=== PATIENT | female | born 1955 | race Caucasian/White ===

== ENCOUNTER 2024-05-11 23:41 | Observation (INO) | payer MEDICARE, SELFPAY ==
[2024-05-11 14:46] VITALS: BP 132/87
[2024-05-11 15:21] LABS: % Basophils 0.2 % (0-2); % Immature Granulocytes 0.2 % (0-0.5); % Lymphocytes 40.6 % (20.5-51.1); % Monocytes 6.1 % (1.7-9.3); % Neutrophils 50.9 % (42.2-75.2); Absolute Eosinophils 0.1 10^3/uL (0-0.7); Absolute Monocytes 0.3 10^3/uL (0.1-0.6); Absolute Neutrophils 2.5 10^3/uL (1.4-6.5); Hematocrit 40.7 % (37.0-47.0); Hemoglobin 13.9 g/dL (12.0-16.0); Mean Corp Hgb Conc. 34.2 g/dL (33.0-37.0); Mean Corpuscular Volume 93.8 fL (81.0-99.0); Mean Platelet Volume 11.6 fL (7.4-10.4); Nucleated Red Blood Cells % 0 %; Platelet Count 210 10^3/uL (130-400); Red Blood Cell Count 4.34 10^6/uL (4.20-5.40); Red Cell Dist. Width 11.9 % (11.5-14.5); White Blood Cell Count 4.9 10^3/uL (4.8-10.8)
[2024-05-11 15:36] LABS: ALT (SGPT) 21 U/L (0-35); AST (SGOT) 25 U/L (14-36); Albumin 4.6 g/dl (3.5-5.0); Alkaline Phosphatase 121 U/L (38-126); Blood Urea Nitrogen 19 mg/dl (7-17); Calcium 9.8 mg/dl (8.4-10.2); Carbon Dioxide 28 mmol/L (22-30); Chloride 102 mmol/L (98-107); Glucose 163 mg/dl (70-99); Potassium 4.2 mmol/L (3.5-5.1); Sodium 137 mmol/L (135-145); Total Bilirubin 0.6 mg/dl (0.2-1.3); Total Protein 7.1 g/dl (6.3-8.2); eGFR > 60.00
[2024-05-11 16:31] LABS: Urine Albumin Negative (Neg - Trace); Urine Bilirubin Negative (Negative); Urine Character Clear (Clear); Urine Color Yellow; Urine Glucose Negative (Negative); Urine Ketone Negative (Negative); Urine Leukocyte Negative (Negative); Urine Nitrite Negative (Negative); Urine Occult Blood Negative (Negative); Urine Specific Gravity 1.015 (<1.030); Urine Urobilinogen Negative (Neg - 1+)
[2024-05-11 18:20] VITALS: BMI 27.3
[2024-05-11 18:26] VITALS: BP 143/83
--- NOTE | 2024-05-11 18:26 | EDRN ---
Pt says she was shopping this afternoon and she was asked to get an address and she says she was unable to remember how to get the address from her phone around 1230 today. Pt drove home, used her GPS to get home, pt says she is new to the area.
Daughter at bedside says her sister spoke with pt and was told this and little bit later pt repeated the story and did not remember that she had just told her the same story. Sister called daughter at bedside who called 911 at [phone]. Pt denies
headache, visual/speech disturbance, cp, sob, abd pain, n/v/c/d, urinary symptoms, weakness, dizziness, numbness/tingling. Pt's only complaint is she feels nervous. No hx similar episode.
--- NOTE | 2024-05-11 18:30 | EDRN ---
Pt says she cannot remember if she had breakfast this morning but she can remember she ate cashews when she returned from shopping.
[2024-05-11 19:00] VITALS: BP 146/79
--- NOTE | 2024-05-11 19:33 | ED.GENMED ---
History of Present Illness
General
Chief Complaint: Change in Mental Status
Source: patient, spouse and family
Exam Limitations: none
Time Seen by Provider: 05/11/24 19:03
Nursing documentation reviewed up to this point in time: agreed with
History of Present Illness
History of Present Illness:
68-year-old female presenting to the emergency department with concerns of an episode where she had a lapse of memory while she was out at the mall. She had difficulty using her phone and finding directions. She was able to drive home but claims
that this was a bit of a bladder as well. The family claims that she seemed to have some asymmetry of her mouth but denies any additional obvious symptoms. At this point symptoms of fully resolved. No chest pain shortness of breath. No change in
medications. Does have a history of anxiety.
Review of Systems
Review of Systems
Allergies reviewed?: Yes
All Other Systems: ROS reviewed and negative except as documented in HPI and ROS
Phy Exam
Physical Exam
Physical Exam:
GENERAL: Alert , in no apparent distress
EYE: pupils equal and reactive
NECK: Supple, no significant adenopathy.
ENT: o/p clr, mmm.
CARDIAC: Regular rate and rhythm .
LUNGS: Clear breath sounds bilaterally, no acute respiratory distress, no wheezes/rales/rhonchi
ABDOMEN: Soft, without focal tenderness, no r/g, no cvat
NEUROLOGICAL: Alert and oriented, no focal neuro deficits
SKIN: Warm and dry, skin intact.
MUSCULOSKELETAL: No edema, well perfused.
PSYCH: Normal and appropriate interaction.
Course
Orders/Labs/Results
Orders:
Orders
05/11/24 14:54
CT Head W/o Iv Contrast Urgent
Comment:
Reason For Exam: change in MS
05/11/24 15:04
CBC/With Diff [Complete Blood Count/With Diff] Urgent
Comprehensive Metabolic Panel Urgent
05/11/24 16:10
Urinalysis Reflex To Culture Urgent
Date Specimen was Collected: 05/11/24
Time Specimen was Collected: 16:09
05/11/24 19:29
EKG [Electrocardiogram (*1)] Urgent
Reason for Study: TIA/Stroke
CT Head & Neck Angio W/wo IV Urgent
Comment:
Reason For Exam: memory loss event today/mouth asymetry
EKG- Treatment ONCE
Abnormal Lab Results
05/11/24
15:04
MCH 32.0 H pg
(27.0-31.0)
MPV 11.6 H fL
(7.4-10.4)
BUN 19 H mg/dl
(7-17)
Glucose 163 H mg/dl
(70-99)
05/11/24 15:04
05/11/24 15:04
Vital Signs
Initial and Last Documented VS:
Initial Vital Signs
Temp Pulse Resp BP Pulse Ox
98.2 F 79 16 132/87 100
05/11/24 14:46 05/11/24 14:46 05/11/24 14:46 05/11/24 14:46 05/11/24 14:46
Last Documented Vital Signs
Temp Pulse Resp BP Pulse Ox
99 F 73 16 127/76 98
05/11/24 18:26 05/11/24 22:13 05/11/24 22:13 05/11/24 22:13 05/11/24 22:13
MDM/Problems Addressed
MDM/Problems Addressed:
68-year-old female presenting to the emergency department today with concerns of an episode where she had a lapse of memory and potentially drooping of her mouth and smile according to the family on the left side. On arrival patient is currently
asymptomatic vital signs are normal labs unremarkable head CT without emergent findings. Case was discussed with neurology the recommended CT angiogram and potential dual antiplatelet treatment. Patient is already on atorvastatin. CT angiogram
without emergent findings. Patient claims that she still has some degree of confusion as well as family believes that her smile seems to be somewhat asymmetrical still. Considering this plan to bring in for MRI.
*Critical Care Note
Total Time (30-74mins, 75-104mins- exclusive of procedures): Not Applicable
ED Attending Note
-
Portions of this chart may have been created with voice recognition software.� Occasional wrong word or��sound alike� substitutions may have occurred due to the inherent limitations of voice recognition software.
Discharge Plan
Departure
Patient Disposition: Admit
Date of Disposition: 05/11/24
Time of Disposition: 22:49
Admit to: Telemetry
Admit to doctor: Chance
Presentation/result/management discussed w/ accepting MD/DO: Hospitalist
Patient with high blood pressure during this ER visit?: No
Condition: Good
Covid-19: Not Applicable
Discharge Problem:
Acute memory impairment
Prescriptions:
No Action
venlafaxine [Effexor XR] 75 mg Capsule,Extended Release 24hr
150 mg PO DAILY
atorvastatin 10 mg Tablet
10 mg PO QPM
citalopram 20 mg Tablet
20 mg PO DAILY
Patient Comments:
pt in process of weaning
lorazepam 0.5 mg Tablet
0.5 mg PO PRN PRN (Reason: anxiety)
Centrum Silver Tablet
1 tab PO DAILY
Referrals:
Arcadio Cho CRNP [Family Provider] -
Interventions
Interventions:
*Risk Screen - Suicide Last Done: 05/11/24 14:46
*General Assessment Last Done: 05/11/24 18:20
*Neglect/Abuse Screening Last Done: 05/11/24 14:46
*ED- Fall Risk Assessment Last Done: 05/11/24 18:20
*ED COVID-19 Vaccine History Last Done: 05/11/24 18:14
ED- Pulmonary Assessment Last Done: 05/11/24 18:48
ED- Neurological Assessment Last Done: 05/11/24 18:31
ED- Cardiac Assessment Last Done: 05/11/24 18:48
Discharge Date and Time
Print Language: SWAZI
[2024-05-11 20:00] VITALS: BP 133/75
[2024-05-11 22:13] VITALS: BP 127/76
[2024-05-11 23:00] VITALS: BP 143/90
[2024-05-11] MEDS: PLAVIX 300 MG PO (23:01)
[2024-05-11] MEDS: ASPIRIN 325 MG PO (23:01)
--- NOTE | 2024-05-11 23:08 | HPS.HSE ---
Family Physician
-
Family Physician: Arcadio Cho
Chief Complaint
-
Episode lapse of memory difficulty using phone and finding directions to drive home
History of Present Illness
68-year-old female from home by EMS presented to the ER 2 PM stating she was at the [employer] shopping for a girlfriends gift around 1230 she then went to pay for the item but give her friends address for the gift to be shipped
however she could not figure out how to work her telephone to get the information out. She states she sat at the desk for a few minutes until she was able to figure out the information to give to the cashier checker then she proceeded to drive home using
her GPS as they just moved to this area not very long ago from [place]. She spoke with her daughter at around 1:40 PM who told her she repeated the same conversation twice she then called her sister who called 911 to have her mother brought to the
ER for evaluation. While in the ER the patient's daughter noticed a subtle left-sided facial droop which I did see on her cell phone. The current droop is resolved. She has a slight frontal headache pressure sensation 1 out of 10. Her daughter
states she complained of a headache on Tuesday 2 days ago but the patient has no recollection of that. She typically gets headaches only twice a month. She has no other neurological deficits
She denies headache, blurred vision, chest pain, palpitations, shortness of breath, cough, abdominal pain, nausea, vomiting, diarrhea, fever, chills, sore throat. She has past medical history of anxiety, medical marijuana use, insomnia, HLD
Medical History
Past Medical History
Past Medical History: Reports Other
Additional Past Medical History:
anxiety
medical marijuana use
insomnia,
HLD
Past Surgical History: Reports Other
Additional Past Surgical History:
Appendectomy
Multiple benign breast lumpectomies
Paraesophageal hiatal hernia fundoplication
Bilateral knee arthroscopy
Left wrist surgery unknown type
Social History
Tobacco: Non-smoker
Drug: Marijuana (Medical)
Personal:
Living: With Family
Employment: Retired
Family History
Family History: Other (Mother age 95 pneumonia history HTN, HLD, father age 95 stroke, HLD, HTN, colorectal cancer at age 70, 1 brother living healthy 1 sister living HLD)
Allergies / Home Medications
Allergies reflects when Allergies were last updated in [employer].
Home Medications with original date entered in [employer]
Allergy/Medication List:
Allergies
Allergy/AdvReac Type Severity Reaction Status Date / Time
cefaclor [From [facility]] Allergy Unknown Unknown Verified 05/11/24 14:46
Home Medications
Medical Marijuana 1 tab PO HS 05/11/24
atorvastatin 10 mg tablet 10 mg PO HS 05/11/24
citalopram 10 mg tablet 5 mg PO DAILY 05/11/24
lorazepam 0.5 mg tablet 0.5 mg PO DAILYPRN PRN anxiety 05/11/24
therapeutic multivitamin 1 tab PO DAILY 05/11/24
venlafaxine 75 mg capsule,extended release 24 hr (Effexor XR) 150 mg PO DAILY 05/11/24
zolpidem 5 mg tablet 5 mg PO HSPRN PRN sleep 05/11/24
Review of Systems
-
History Source: Patient and Family (Son and daughter at bedside)
A 12 point ROS was completed and negative except as noted: Yes
Constitutional: Denies Fever, Fatigue or Chills
EENT: Reports Other (Brief episode left-sided facial droop); Denies Sore Throat or Runny Nose
Respiratory: Denies Cough or Trouble Breathing
Cardiac: Denies Chest Pain, Diaphoresis, Palpitations or Syncope
Abdomen/GI: Denies Abdominal Pain, Nausea, Vomiting, Diarrhea, Constipated or Bloody Stools
: Denies Dysuria, Frequency, Flank Pain, Incontinence or Difficulty Voiding
Musculoskeletal: Denies Joint Pain or Edema
Skin: Denies Itching or Rash
Neurological: Reports Headache (Across frontal sinuses 1 out of 10) and Other (Lapse in memory forgetting how to use her telephone earlier today around 1230); Denies Dizzy, Weakness or Numbness
Endocrine: Reports No Symptoms
Hematologic/Lymphatic: Reports No Symptoms
Psych: Reports Calm
Physical Exam
Vital Signs
Vital Signs
Temp Pulse Resp BP Pulse Ox
99 F 73 16 127/76 98
05/11/24 18:26 05/11/24 22:13 05/11/24 22:13 05/11/24 22:13 05/11/24 22:13
Physical Exam
General: No Apparent Distress, Comfortable, Conversant and Pain (Frontal headache 1 out of 10); No Fever or Chills
HEENT: NormoCephalic, Anicteric, Moist mucous membranes, Atraumatic, PERRLA, [place] Conjunctivae, No Ptosis, Neck Nontender and Other (No left-sided facial droop, tongue midline sensation intact bilateral sides of face); No Thyromegaly
Respiratory: Clear; No Wheezes, Rales or Rhonchi
Cardiac: S1/S2 and Regular Rhythm; No Murmur, Rub, Gallop or Peripheral Edema
Breast: Deferred by me
GI: Soft, Non Tender, Non Distended, Normal Bowel Sounds and No Hepatosplenomegaly
Rectal: Deferred by Provider
Genito-urinary: Deferred by me
Musculoskeletal: No Clubbing, No Cyanosis and No Edema
Skin: Warm and Dry; No Rash or Jaundice
Neuro: AO x 3, No Motor Deficits, Cranial Nerves Intact, No Sensory Deficits and Other (Lapse in memory forgetting how to use her telephone earlier today around 1230-resolved); No Slurred Speech, Facial Droop, Tremors or Sedated
Psych: Calm
Laboratory Results
-
05/11/24 15:04
05/11/24 15:04
Laboratory Results
Total Bilirubin 0.6 mg/dl (0.2-1.3) 05/11/24 15:04
AST 25 U/L (14-36) 05/11/24 15:04
ALT 21 U/L (0-35) 05/11/24 15:04
Alkaline Phosphatase 121 U/L (38-126) 05/11/24 15:04
Data Reviewed
-
CT Scan: Report Reviewed by me
Lab Data: Labs Reviewed by me
Impression/Plan
-
Impression/plan:
Observation telemetry
#Acute memory loss concern for CVA/TIA
-Consult neurology�Dr. Ezequiel Hall aware recommends the following below
-DAPT therapy aspirin 325 now then 81 mg daily, Plavix 300 mg now then 75 mg x 21 days
-MRI brain
-Neurochecks every 4 hours
-Check lipid profile, HgbA1c
PT/OT/case management consult
-Patient has headache 1 out of 10, 99F temp
-Will check COVID and influenza give Tylenol 650 mg now
Anxiety hx
-Continue lorazepam 0.5 mg daily as needed anxiety
-Continue Effexor XR 150 mg daily, citalopram 5 mg p.o. daily
Medical marijuana use
Insomnia
-Hold Ambien 5 mg at bedtime as needed
HLD
-Check lipid profile
-Continue atorvastatin 10 mg daily
DVT prophylaxis
SCDs
Full code
--- NOTE | 2024-05-11 23:31 | W.PN.UPDATE ---
Update Note
Progress Note Update
I saw and examined the patient.
The SUPERVISOR BRINE or PA's note was reviewed and I agree with the note.
Comment:
This note serves as an addendum to the H&P by residential worker JOSELIN
Janie RINALDI
HPI
68F fron Home HX HLD, anxiety, medical marijuana use seen at ER
- an episode of lapse of memory while out at the mall
- report difficulty using her phone and finding directions.
- however was able to drive home.
- Family noted some asymmetry of her mouth but denied any other weakness
- she believes she still has some memory impairment at this time.
ROS
denies headache, blurred vision, chest pain, palpitations, shortness of breath, cough, abdominal pain, nausea, vomiting, diarrhea, fever, chills, sore throat.
PHX; se above
Vital Signs
Temp Pulse Resp BP Pulse Ox
99 F 73 16 127/76 98
05/11/24 18:26 05/11/24 22:13 05/11/24 22:13 05/11/24 22:13 05/11/24 22:13
PE:
Unremarkable
Normal speech. Normal language function
AAO3
Symmetric face
Non focal motor weakness
Able to recall my 2 out of 3 questions I asked after 5 mins
Abnormal Lab Results
05/11/24
15:04
MCH 32.0 H
MPV 11.6 H
BUN 19 H
Glucose 163 H
NEG UA
CT Head W/o Iv Contrast
- No acute intracranial abnormality noted.
- Mild senescent changes.
H & N CTA:
- No significant narrowing involving the vertebral or basilar arteries.
- No evidence for high-grade stenosis involving the posterior cerebral arteries.
- No significant atherosclerotic disease with no significant narrowing involving the carotid bulbs and proximal internal carotid arteries bilaterally.
- Anterior cerebral arteries and middle cerebral arteries appear within normal limits with no evidence for large vessel occlusion or high-grade stenosis.
- There is no CT angiographic evidence for intracranial aneurysm.
- Percent stenosis is calculated using NASCET criteria.
ASSESSMENT & PLAN
Transient episode of acute memory lapse evaluating for acute CVA/TIA
- Neuro checks every 4 hours
- DAPT: aspirin 325 now then 81 mg daily, Plavix 300 mg now then 75 mg x 21 days
- MRI brain
- lipid profile, HgbA1c
- Consulted neurology�Dr. Ezequiel Hall aware recommends the above
HX anxiety
- on lorazepam 0.5 mg daily as needed anxiety
- on Effexor XR 150 mg daily, citalopram 5 mg p.o. daily
Medical marijuana use
Insomnia
-Hold Ambien 5 mg at bedtime as needed
HLD
- Check lipid profile
- on atorvastatin 10 mg daily
DVT prophylaxis: SCDs
Full ocde
Obs TLM
[2024-05-11] MEDS: TYLENOL 650 MG PO (23:44)
[2024-05-12] VITALS (8 sets, daily range): BP systolic 111–146; BP diastolic 53–93; PULSE 63–64; O2SAT 99; BMI 26.8
[2024-05-12 00:20] LABS: COVID-19 Antigen Negative (Negative)
[2024-05-12] MEDS: MELATONIN 5 MG PO (01:52)
[2024-05-12] MEDS: ATIVAN 0.5 MG PO (01:52)
[2024-05-12 06:36] LABS: % Basophils 0.2 % (0-2); % Eosinophils 3.8 % (0-6); % Immature Granulocytes 0.2 % (0-0.5); % Monocytes 9.1 % (1.7-9.3); % Neutrophils 36.7 % (42.2-75.2); Absolute Eosinophils 0.2 10^3/uL (0-0.7); Absolute Lymphocytes 2.4 10^3/uL (1.2-3.4); Absolute Monocytes 0.4 10^3/uL (0.1-0.6); Absolute Neutrophils 1.7 10^3/uL (1.4-6.5); Hematocrit 37.5 % (37.0-47.0); Hemoglobin 12.8 g/dL (12.0-16.0); Mean Corp Hgb Conc. 34.1 g/dL (33.0-37.0); Mean Corpuscular Hgb 31.9 pg (27.0-31.0); Mean Corpuscular Volume 93.5 fL (81.0-99.0); Mean Platelet Volume 11.5 fL (7.4-10.4); Nucleated Red Blood Cells % 0 %; Platelet Count 170 10^3/uL (130-400); Red Blood Cell Count 4.01 10^6/uL (4.20-5.40); Red Cell Dist. Width 11.9 % (11.5-14.5); White Blood Cell Count 4.7 10^3/uL (4.8-10.8)
[2024-05-12 06:55] LABS: Blood Urea Nitrogen 11 mg/dl (7-17); Calcium 9.4 mg/dl (8.4-10.2); Carbon Dioxide 27 mmol/L (22-30); Chloride 108 mmol/L (98-107); Estimated Creatinine Clearance 75 ml/min; Glucose 91 mg/dl (70-99); HDL Cholesterol 80 mg/dl; LDL Cholesterol, Calculated 68 mg/dl; Potassium 3.8 mmol/L (3.5-5.1); Sodium 139 mmol/L (135-145); Total Cholesterol 167 mg/dl (50-199); Triglyceride 95 mg/dl (10-149); Very Low Density Lipoprotein 19 mg/dl (0-30); eGFR > 60.00
[2024-05-12] MEDS: THERAGRAN 1 TABLET PO (08:13)
[2024-05-12] MEDS: PLAVIX 75 MG PO (08:13)
[2024-05-12] MEDS: LOW STRENGTH ASPIRIN 81 MG PO (08:13)
[2024-05-12] MEDS: CELEXA 5 MG PO (08:13)
[2024-05-12] MEDS: EFFEXOR XR 150 MG PO (08:13)
[2024-05-12 09:26] LABS: Glycohemoglobin (HgbA1c) 5.4 % (4.0-5.6)
--- NOTE | 2024-05-12 10:01 | CM ---
CM following re: discharge planning.
Reviewed pt's chart, met with pt.
Pt is a 68 year old female, admitted with OBS status and primary dx of acute memory lapse evaluating for acute CVA/TIA. OBS status explained to the pt, pt expressed her understanding, TORREZ letter signed, placed on chart, pt has a copy.
Pt reports she lives with 2SH, 2 steps to enter, has 3 supportive children. 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 No DME, VN or SNF history
PT and OT evaluations noted - pt has no skilled PT/OT needs.
PCP: Susie Cho
Pharmacy: [facility]
D/C plan: home no needs. to transport.
--- NOTE | 2024-05-12 10:20 | PTOTSP ---
Speech Therapy Evaluation:
Pt presents with functional oropharyngeal swallow at bedside. Oral phase unremarkable. No overt s/sx of aspiration across PO trials. Pt passed 3oz swallow screen. WBC slightly decreased at 4.7 (normal range begins at 4.8). No chest imaging completed
thus far. Imaging negative for acute intracranial abnormality. No significant predisposing risk factors.
Recommend:
1. Continue IDDSI Level 7 (regular) solids and thin liquids
2. Medications as tolerated
3. General aspiration precautions
4. HOGSHEAD FILLER to s/o - please reconsult if indicated
--- NOTE | 2024-05-12 13:57 | W.PN.HOSP.TC ---
Today's Communication/Plan
-
Monitor vital signs see plan
MRI negative for acute CVA
Discussed with neurology, think likely TIA
Full antiplatelet therapy for 21 days and then aspirin alone
Increase atorvastatin to 40 mg
Discharge today
time of discharge 37 minutes
Assessment / Plan
Assessment / Plan
General: No Apparent Distress, Comfortable, Conversant
HEENT: NormoCephalic, Anicteric, Moist mucous membranes, Atraumatic, PERRLA,
Respiratory: Clear; No Wheezes, Rales or Rhonchi
Cardiac: S1/S2 and Regular Rhythm
GI: Soft, Non Tender, Non Distended, Normal Bowel Sounds
Musculoskeletal: No Clubbing, No Cyanosis
Neuro: AO x 3, No Motor Deficits, Cranial Nerves Intact, No Sensory Deficits and Other (Lapse in memory forgetting how to use her telephone earlier today around 1230-resolved); No Slurred Speech, Facial Droop, Tremors or Sedated
Psych: Calm
Acute memory loss concern for CVA/TIA
-Consult neurology�Dr. Ezequiel Hall aware recommends the following below
Discussed with Dr. Roblero from neurology, discharged on dual antiplatelet therapy for 21 days and then will continue aspirin alone
Increase atorvastatin to 40 mg
MRI brain without acute stroke. Does appear that symptoms were likely secondary to TIA.
-MRI brain
-Neurochecks every 4 hours
HgbA1c 5.4
Anxiety hx
-Continue lorazepam 0.5 mg daily as needed anxiety
-Continue Effexor XR 150 mg daily, citalopram 5 mg p.o. daily
Medical marijuana use
Insomnia
-restart Ambien 5 mg at bedtime as needed
HLD
-Check lipid profile
-Continue atorvastatin 10 mg daily
DVT prophylaxis
SCDs
Full code
Anticipated Discharge: Today
Subjective/Interval History
-
Date of Service: May 12, 2024
Denies headache
Objective Data
-
Labs:
Laboratory Results
05/12/24
05:59
WBC 4.7 L
Hgb 12.8
Hct 37.5
Plt Count 170
Sodium 139
Potassium 3.8
Chloride 108 H
Carbon Dioxide 27
BUN 11
Creatinine 0.6
Glucose 91
Calcium 9.4
Vital Signs:
Vital Signs
Temp Pulse Resp BP Pulse Ox
98.1 F 73 18 128/77 99
05/12/24 11:25 05/12/24 11:25 05/12/24 11:25 05/12/24 11:25 05/12/24 11:25
I&O
05/11/24 05/12/24 05/13/24
06:59 06:59 06:59
Intake Total 480 / 480
Balance 480 / 480
--- NOTE | 2024-05-12 14:12 | W.DCSUMMARY ---
Discharge Summary
Discharge Data
Date of Admission: 05/11/24
Date of Discharge: 05/12/24
-
Pending Results: No
Hospital Course
68-year-old female with past medical history of anxiety, insomnia, hyperlipidemia came to the hospital with acute memory loss concerning for CVA/TIA. CT scan initially was negative for any hemorrhage. MRI was also done which was negative for any
acute CVA. Patient was seen by neurology who thought patient symptoms could likely be from TIA. Patient was started on dual antiplatelet therapy and was instructed to continue for 21 days total and then discontinue Plavix and continue aspirin
alone. Patient atorvastatin was also increased to 40 mg daily. Once her symptoms continue to improve, she was then discharged home with instructions to follow-up with PCP and neurology.
Discharge Plan
-
Patient Disposition: Home (Routine Discharge)
Discharge Diagnosis/Procedures: TIA
Diet: As tolerated
Activity: As tolerated
Driving Restrictions: As prior to admission
Bathing Restrictions: None
Activity Restrictions/Additional Instructions:
Continue with aspirin and Plavix for another 20 days starting tomorrow and then discontinue Plavix and continue aspirin indefinitely
Referrals:
uSdhakar Sharif MD [Active] - in three to four weeks
Arcadio Cho CRNP [Family Provider] - in less than 1 week
Prescriptions:
New
atorvastatin 40 mg Tablet
40 mg PO QPM Qty: 30 0RF
clopidogrel 75 mg Tablet
75 mg PO DAILY Qty: 20 0RF
aspirin 81 mg Tablet,Chewable
81 mg PO DAILY Qty: 30 0RF
Continued
venlafaxine [Effexor XR] 75 mg Capsule,Extended Release 24hr
150 mg PO DAILY
lorazepam 0.5 mg Tablet
0.5 mg PO DAILYPRN PRN (Reason: anxiety)
citalopram 10 mg Tablet
5 mg PO DAILY
therapeutic multivitamin Tablet
1 tab PO DAILY
zolpidem 5 mg Tablet
5 mg PO HSPRN PRN (Reason: sleep)
Medical Marijuana
1 tab PO HS
Discontinued
atorvastatin 10 mg Tablet
10 mg PO HS
Discharge Orders:
Discharge Patient (As Directed); Ordered 05/12/24
Ordered By: Sherif Haywood
Discharge Date and Time
Discharge Date/Time: 05/12/24 17:09
Print Language: ARMENIAN
--- NOTE | 2024-05-12 16:14 | CON.NEURO ---
Neuro Assessment/Plan
Assessment
brain MRI imgs rev'd, normal
CTA head/neck imgs rev'd, cavernous carotid mild calcification b/l, no stenosis/aneurysms
constellation of apraxia, transient global amnesia, facial droop which seems to have occurred sequentially
most likely TIA and treatment 21 days of DAPT, followed by aspirin alone; and Lipitor 40
some suspicions for simple partial seizure given the apparent sequential nature; if this happened again in the same sequence I would say simple partial seizure were more likely
Plan
ok to discharge home
21 days of DAPT, followed by aspirin alone; Lipitor 40
Consultation
Order
Date of Consultation: 05/12/24
Requesting Provider: Sherif Haywood
Reason for Consult: stroke/TIA
Subjective/Objective
Subjective Data
Date of Service: May 12, 2024
From H&P,
68-year-old female from home by EMS presented to the ER 2 PM stating she was at the [employer] [facility] shopping for a girlfriends gift around 1230 she then went to pay for the item but give her friends address for the gift to be shipped
however she could not figure out how to work her telephone to get the information out. She states she sat at the desk for a few minutes until she was able to figure out the information to give to the cage cashier then she proceeded to drive home using
her GPS as they just moved to this area not very long ago from [place]. She spoke with her daughter at around 1:40 PM who told her she repeated the same conversation twice she then called her sister who called 911 to have her mother brought to the
ER for evaluation. While in the ER the patient's daughter noticed a subtle left-sided facial droop which I did see on her cell phone. The current droop is resolved.
this morning patient recalls trouble using her phone. does not recall repeating herself or having the same conversation with her daughter multiple times.
Objective Data
Vital Signs
Temp Pulse Resp BP Pulse Ox
36.6 C 73 18 132/81 98
05/12/24 15:35 05/12/24 15:35 05/12/24 15:35 05/12/24 15:35 05/12/24 15:35
Lab Results
05/12/24 05:59
05/12/24 05:59
Sodium 139 mmol/L (135-145) 05/12/24 05:59
Potassium 3.8 mmol/L (3.5-5.1) 05/12/24 05:59
BUN 11 mg/dl (7-17) 05/12/24 05:59
Glucose 91 mg/dl (70-99) 05/12/24 05:59
Calcium 9.4 mg/dl (8.4-10.2) 05/12/24 05:59
LDL Cholesterol, Calc 68 mg/dl 05/12/24 05:59
Patient Allergies
cefaclor [From Ceclor] Allergy (Unknown, Verified 05/11/24 14:46)
Unknown
Physical Exam
-
AAOx3, speech clear, language intact
VFF, EOMI, face symmetric
full strength b/l UE/LE
sensation intact touch/temp
DTR 1+ symmetric
Medications
-
Active Medications
Generic Name Dose Route Start Last Admin
Trade Name Freq PRN Reason Stop Dose Admin
Acetaminophen 650 mg 05/12/24 01:07
Acetaminophen 650 Mg Rectal Suppository RECTAL 06/09/24 01:06
Q4HPRN PRN
DIAS, mild pain, or temp >100.4F
Acetaminophen 650 mg 05/12/24 01:07
Acetaminophen 325 Mg Tablet PO 06/09/24 01:06
Q4HPRN PRN
DIAS, mild pain, or temp >100.4F
Aspirin 81 mg 05/12/24 08:00 05/12/24 08:13
Aspirin 81 Mg Chewable Tablet PO 06/09/24 07:59 81 mg
DAILY AMAN Administration
Atorvastatin Calcium 40 mg 05/12/24 18:00
Atorvastatin (Lipitor) 40 Mg Tablet PO 06/09/24 17:59
QPM AMAN
Citalopram Hydrobromide 5 mg 05/12/24 08:00 05/12/24 08:13
Citalopram 10 Mg Tablet PO 06/09/24 07:59 5 mg
DAILY AMAN Administration
Clopidogrel Bisulfate 75 mg 05/12/24 08:00 05/12/24 08:13
Clopidogrel 75 Mg Tablet PO 06/02/24 07:59 75 mg
DAILY AMAN Administration
Lorazepam 0.5 mg 05/12/24 01:07 05/12/24 01:52
Lorazepam 0.5 Mg Tablet PO 06/09/24 01:06 0.5 mg
DAILYPRN PRN Administration
anxiety
Multivitamins Therapeutic 1 tablet 05/12/24 08:00 05/12/24 08:13
Multivitamin Tablet PO 06/09/24 07:59 1 tablet
DAILY AMAN Administration
Sodium Chloride 0 flush 05/12/24 02:00
Sodium Chloride 0.9% (Flush) Syringe IV 06/09/24 01:59
PER PROTOCOL AMAN
Venlafaxine HCl 150 mg 05/12/24 08:00 05/12/24 08:13
Venlafaxine 75 Mg Extended Release Capsule PO 06/09/24 07:59 150 mg
DAILY AMAN Administration
Home Medications
�Medication �Instructions �Recorded
Medical Marijuana 1 tab PO HS 05/11/24
citalopram 10 mg tablet 5 mg PO DAILY 05/11/24
lorazepam 0.5 mg tablet 0.5 mg PO DAILYPRN PRN anxiety 05/11/24
therapeutic multivitamin 1 tab PO DAILY 05/11/24
venlafaxine 75 mg capsule,extended 150 mg PO DAILY 05/11/24
release 24 hr (Effexor XR)
zolpidem 5 mg tablet 5 mg PO HSPRN PRN sleep 05/11/24
aspirin 81 mg chewable tablet 81 mg PO DAILY #30 tabs 05/12/24
atorvastatin 40 mg tablet 40 mg PO QPM #30 tabs 05/12/24
clopidogrel 75 mg tablet 75 mg PO DAILY #20 tabs 05/12/24
--- NOTE | 2024-05-12 16:34 | PTCARENOTE ---
IV discontinued. Tele pack removed. Discharge paperwork printed and reviewed with patient who verbalized understanding. Pt transported off the floor with all belongings from the room by RN accompanied by spouse and daughter.
== END 2024-05-12 17:09 | disposition home or self-care (01) ==
LOC: 4 EAST ACU 23:41
PROVIDERS: Clinical Nurse Specialist Family Health; Emergency Medicine; Student in an Organized Health Care Education/Training Program; ADMITTING PHYSICIAN Internal Medicine; ATTENDING PHYSICIAN Internal Medicine; CONSULT PHYSICIAN Psychiatry & Neurology Clinical Neurophysiology; EMERGENCY PHYSICIAN Emergency Medicine; FAMILY PHYSICIAN Nurse Practitioner Adult Health
DX: G45.9 Transient cerebral ischemic attack, unspecified (principal); R41.82 Altered mental status, unspecified; F41.9 Anxiety disorder, unspecified; R41.3 Other amnesia; Z79.899 Other long term (current) drug therapy; G47.00 Insomnia, unspecified; E78.5 Hyperlipidemia, unspecified; Z79.02 Long term (current) use of antithrombotics/antiplatelets; G45.4 Transient global amnesia; R29.810 Facial weakness; R48.2 Apraxia; F12.90 Cannabis use, unspecified, uncomplicated; Z79.82 Long term (current) use of aspirin; Z80.0 Family history of malignant neoplasm of digestive organs; Z82.3 Family history of stroke; Z82.49 Family history of ischemic heart disease and other diseases of the circulatory system
CPT/HCPCS: 70450; 70496; 70498; 70551; 80048; 80053; 80061; 81003; 83036; 85025; 87502; 87811; 92610; 93005; 97162; 97166; 99285; G0378; Q9967